=== PATIENT | male | born 1975 | race African-American/Black ===

== ENCOUNTER 2020-09-09 09:17 | Day surgery (SDC) | payer OTHER ==
[~2020-09-09] VITALS: Ht 180.3 cm; Wt 84.5 kg
[2020-09-09] MEDS ORDERED: ACETAMINOPHEN500 M1 (10:15)
[2020-09-09] MEDS ORDERED: CHLORTHALIDONE25 MG (10:15)
[2020-09-09 10:16] LABS: BASOPHILS 0.2 % (0-2); EOSINOPHILS 0.3 % (0-7); HEMATOCRIT 46.4 % (42.0-54.0); HEMOGLOBIN 15.2 g/dL (13.5-17.5); LYMPHOCYTES 18.4 % (15-50); MCH 27.2 pg (26.0-34.0); MCHC 32.7 g/dL (31.0-37.0); MCV 83.1 fL (80.0-100.0); MEAN PLATELET VOLUME 8.5 fL (7.4-10.4); MONOCYTES 9.1 % (2-11); PLATELET COUNT 197 10x3/uL (130-400); RBC 5.58 10x6/uL (4.20-6.10); RDW 14.4 % (11.5-14.5); WBC 9.1 10x3/uL (4.8-10.8)
[2020-09-09] MEDS ORDERED: SENNA LAXATIVE8.6 MG (10:16)
[2020-09-09] MEDS ORDERED: FIBER-LAX625 MG (10:17)
[2020-09-09] MEDS ORDERED: VITAMIN D 22000 UNIT (10:17)
[2020-09-09] MEDS ORDERED: BACLOFEN20 M1 (10:18)
[2020-09-09] MEDS ORDERED: VITAMIN D325 MC1 (10:18)
[2020-09-09] MEDS ORDERED: MOBIC7.5 MG (10:19)
[2020-09-09] MEDS ORDERED: NORVASC5 MG (10:19)
[2020-09-09 10:21] VITALS: BP 159/80; BMI 26.0
[2020-09-09 11:35] VITALS: Ht 180.3 cm; Wt 84.5 kg
--- NOTE | 2020-09-09 14:36 | NUR ---
1435 POST CHEST XRAY Ifrah HEAD SERVED.
--- NOTE | 2020-09-10 12:37 | OP ---
PATIENT NAME: JAYJAY JOSÉ MEDICAL RECORD: [id number] :71 LOCATION:D.OPS ADMISSION DATE: SURGEON: HAO RAMIREZ MD DATE OF OPERATION: 09/09/2020 PREOPERATIVE DIAGNOSIS: Fecal occult blood positivity. POSTOPERATIVE DIAGNOSES: 1. Fecal occult blood positivity with linear fundal gastritis. 2. Duodenal polyp, 1.5 cm within the junction of the second and third portions of the duodenum. 3. Rectal polyp on a lowest valve of Martínez, semi-pedunculated, 2.4 cm. This was on a fold. PROCEDURES: 1. Esophagogastroduodenoscopy with antral biopsies to rule out H. pylori. 2. Duodenal hot biopsy forceps polypectomy. 3. Total colonoscopy to cecum. 4. Rectal hot biopsy forceps polypectomy. SURGEON: Hao Ramirez MD FEED MIXER HELPER: None. BLOOD LOSS: Minimal. ANESTHESIA: IV sedation. COMPLICATIONS: None. The risks, possible complications, and alternatives of the procedure were explained to the patient. He elects to proceed. The discussion specifically included, but was not limited to, bleeding requiring an emergency reoperation. DESCRIPTION OF PROCEDURE: The patient was conveyed to the endoscopy suite electively on 09/09/2020. IV sedation was induced by the anesthesia staff. A bite block was inserted. A gastroscope was inserted into the mouth. It was advanced easily into the hypopharynx. The esophagus was easily intubated as were the stomach and duodenum. Upon withdrawal, retroflexed and angulus views were obtained. Antral biopsies were obtained. I then advanced into the duodenum. A hot biopsy forceps polypectomy was performed. The polyp was located at 11-12 o'clock. This did not appear to be an ampulla of Vater. Some surrounding polypoid tissue was ablated with the argon plasma creative/art director utilizing the small bowel setting in the forced mode. The endoscope was then withdrawn under direct vision. The patient was turned 180 degrees and placed in the Eugene position. A digital rectal examination was performed. The prostate was symmetric and without masses. A colonoscope was inserted through the anus. It was easily advanced to the cecum. The prep was adequate. I slowly withdrew the endoscope. I irrigated and aspirated extensively. I dragged the folds. Combination of normal imaging and narrow band imaging were utilized. In the rectum, a polyp was noted that was on a fold. The patient underwent a hot biopsy forceps polypectomy. Some residual polypoid tissue that was carpeting type of tissue around this was a semi-pedunculated polyp, it was ablated with the argon plasma OPERATIVE REPORT [id number] JAYJAY JOSÉ creative/art director utilizing the rectal setting and the forced mode. A retroflex view was obtained in the rectum. I then unretroflexed the scope and removed it under direct vision. There is no need for the patient to follow up with me in the office unless he develops a complication related to this operative procedure. I would recommend that his next surveillance upper and lower endoscopies to take place in 1 year, which would be 09/13/2021. TRANSINT:[id number] Voice Confirmation ID: [id number] DOCUMENT ID: [id number] HAO RAMIREZ MD at 1237 CC: EUGENE NUNEZ [id number] DICTATION DATE: 09/09/20 1401 LOADER OPERATOR SUPERVISOR: 09/09/20 1532 [facility] 09/09/20 [id number] [place] [address]
--- NOTE | 2020-09-10 12:37 | HP ---
PATIENT: JAYJAY JOSÉ MEDICAL RECORD: [id number] ACCOUNT: [id number] LOCATION:[facility] : 71 ADMISSION DATE: 09/09/20 PCP: ART RAMIREZ MD HISTORY AND PHYSICAL EXAMINATION HISTORY OF PRESENT ILLNESS: The patient is here for heme-positive stools. He has also been having some rectal pain. He underwent a cardiac clearance prior to his endoscopy today. It is noted that when a digital rectal examination was performed, there was some dark stool on Dr. Goldstein's finger. The patient is here for EGD and colonoscopy. The risks, possible complications, and alternatives of the procedure were explained to the patient. He elects to proceed. MEDICINES AT THE DETENTION: Noted. ALLERGIES: No known drug allergies. PAST MEDICAL AND SURGICAL HISTORY: CVA, hypertension, and chronic back pain. REVIEW OF SYSTEMS: Negative for CHF. Negative for diabetes or thyroid problems. PHYSICAL EXAMINATION: GENERAL: The patient does not appear acutely ill. He does not appear chronically ill. VITAL SIGNS: Reviewed. EARS: External ears appear normal. EYES: Extraocular movements are intact. NECK: Trachea is midline. CHEST: No intercostal retractions. PULMONARY: Nonlabored. No stridor. IMPRESSION: Heme-positive stools. PLAN: EGD and colonoscopy. TRANSINT:[id number] Voice Confirmation ID: [id number] DOCUMENT ID: [id number] ART RAMIREZ MD at 1237 CC: EUGENE GOLDSTEIN [id number] DICTATION DATE: 09/09/20 1245 GUN NUMBERER: 09/09/20 1256 [facility] 09/09/20 [place] [address]
== END 2020-09-09 14:50 | disposition home or self-care (01) ==
LOC: D.OPS 09:17
PROVIDERS: Anesthesiology; ATTEND Surgery
DX: R19.5 Other fecal abnormalities (principal); K63.5 Polyp of colon; K29.60 Other gastritis without bleeding; K62.1 Rectal polyp; I10 Essential (primary) hypertension; Z86.73 Personal history of transient ischemic attack (TIA), and cerebral infarction without residual deficits